=== PATIENT | male | born 1970 ===

== ENCOUNTER 2020-09-06 12:16 | Emergency (ER) | payer SELFPAY ==
[~2020-09-06] VITALS: Wt 69.4 kg
[2020-09-06 12:48] LABS: BASO % 0.3 % (0.0-1.0); EOS % 0.1 % (1.0-4.0); LYMPH # 1.3 10*3/uL (1.3-4.4); LYMPH % 7.9 % (27.0-41.0); MEAN CELL VOLUME 82.3 fl (80.0-94.0); MEAN CORPUSCULAR HGB 29.1 pg (27.0-31.0); MEAN CORPUSCULAR HGB CONC 35.3 g/dl (33.0-37.0); MEAN PLATELET VOLUME 10.4 fl (9.6-12.3); MONO # 0.6 10*3/uL (0.1-1.0); MONO % 3.8 % (3.0-9.0); NEUT # 13.9 10*3/uL (2.3-7.9); NEUT % 87.5 % (47.0-73.0); PLATELET COUNT AUTOMATED 322 10*3/uL (130-400); RED BLOOD COUNT 5.47 10*6/uL (4.50-5.90); RED CELL DISTRI WIDTH 11.8 % (0-14.5); WHITE BLOOD COUNT 15.9 10*3/uL (4.8-10.8)
[2020-09-06 13:05] LABS: ALBUMIN 4.6 gm/dl (3.1-4.5); ALKALINE PHOSPHATASE 141 U/L (45-117); BUN 21 mg/dl (7-24); CHLORIDE 95 mmol/L (98-107); CREATININE 1.67 mg/dL (0.70-1.30); LIPASE 174 U/L (73-393); SGOT/AST 31 IU/L (3-35); SGPT/ALT 34 U/L (12-78); SODIUM 132 mmol/L (136-145); TOTAL PROTEIN 9.1 gm/dL (6.4-8.2)
[2020-09-06 13:07] LABS: POTASSIUM 4.2 mmol/L (3.5-5.1); TROPONIN I < 0.015 ng/ml (<0.045)
== END 2020-09-06 17:31 | disposition left against medical advice (07) ==
LOC: ED 12:16
PROVIDERS: Nurse Practitioner Family
DX: R55 Syncope and collapse (principal); E86.0 Dehydration; R11.10 Vomiting, unspecified; R25.2 Cramp and spasm